=== PATIENT | male | born 1985 | race Caucasian/White ===

== ENCOUNTER 2019-11-03 21:20 | Emergency (ER) | payer MEDICAID ==
[~2019-11-03] VITALS: Ht 170.2 cm; Wt 62.6 kg
[2019-11-03 21:26] VITALS: BP 142/103
[2019-11-03] MEDS ORDERED: KETOROLAC 60 MG/2 ML VIAL IM ONE (21:30)
--- NOTE | 2019-11-03 21:51 | NUR ---
PT TAKEN TO RADIOLOGY VIA PATIENT WHEELCHAIR
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
--- NOTE | 2019-11-03 22:09 | NUR ---
PT RETURNED FROM RAD VIA W/C
--- NOTE | 2019-11-03 22:18 | NUR ---
ERMD AT BEDSIDE
[2019-11-03 22:30] VITALS: BP 143/85
--- NOTE | 2019-11-03 22:30 | NUR ---
Patient discharged with v/s stable. Written and verbal after care instructions given and explained. Patient alert, oriented and verbalized understanding of instructions. Wheel Chair Assisted with to car. All questions addressed prior to discharge. ID band removed. Patient advised to follow up with PMD. Rx of MOTRIN given. Patient educated on indication of medication including possible reaction and side effects. Opportunity to ask questions provided and answered. RADIOLOGY CD PROVIDED TO PT.
== END 2019-11-03 22:30 | disposition home or self-care (01) ==
LOC: MED 21:20
DX: S82.141A Displaced bicondylar fracture of right tibia, initial encounter for closed fracture (principal); S82.831A Other fracture of upper and lower end of right fibula, initial encounter for closed fracture; W20.8XXA Other cause of strike by thrown, projected or falling object, initial encounter; Y93.89 Activity, other specified; Y92.89 Other specified places as the place of occurrence of the external cause; Y99.8 Other external cause status
CPT/HCPCS: 29505; 73562; 73590; 96372; 99284; J1885